=== PATIENT | male | born 1995 | race American Indian/Alaskan Native ===

== ENCOUNTER 2022-05-05 04:43 | Emergency (ER) | payer MEDICAID, OTHER ==
[~2022-05-05] VITALS: Ht 182.9 cm; Wt 82.0 kg
[~2022-05-05 04:43] MED LIST: HYDR-3972 PO
[2022-05-05 04:50] VITALS: BP 116/81
[2022-05-05] MEDS ORDERED: LIDOcaine 1% W/epiNEPHrine 1:100,000 20ml vial IJ ONE (05:10)
[2022-05-05] MEDS ORDERED: amoxicillin 250mg capsule PO ONE (05:35)
== END 2022-05-05 06:21 | disposition home or self-care (01) ==
LOC: ER 04:44
DX: S01.511A Laceration without foreign body of lip, initial encounter (principal); V00.841A Fall from standing electric scooter, initial encounter; Y93.89 Activity, other specified; Y92.89 Other specified places as the place of occurrence of the external cause; Y99.8 Other external cause status
CPT/HCPCS: 40650; 99284; J7030; A6449

== ENCOUNTER 2022-08-16 17:15 | Emergency (ER) | payer OTHER ==
[~2022-08-16] VITALS: Ht 182.9 cm; Wt 81.8 kg
[2022-08-16 17:45] VITALS: BP 157/75
== END 2022-08-16 17:54 ==
LOC: ER 17:15
DX: S00.81XA Abrasion of other part of head, initial encounter (principal); M54.2 Cervicalgia; Z88.5 Allergy status to narcotic agent; V49.9XXA Car occupant (driver) (passenger) injured in unspecified traffic accident, initial encounter; Y93.89 Activity, other specified; Y92.89 Other specified places as the place of occurrence of the external cause; Y99.8 Other external cause status
CPT/HCPCS: 70450; 72125; 99284